=== PATIENT | female | born 1995 | race African-American/Black ===

== ENCOUNTER 2020-07-17 09:58 | Emergency (ER) | payer MEDICAID ==
[~2020-07-17] VITALS: Ht 180.3 cm; Wt 84.0 kg
[2020-07-17] MEDS ORDERED: MORPHINE SULFATE 4 MG/ML CPJ (NOT FOR IM USE) IV STA (11:05)
[2020-07-17] MEDS ORDERED: DEXT15LI MT (11:13)
[2020-07-17] MEDS ORDERED: PSEU60TA95 MT (11:14)
[2020-07-17] MEDS ORDERED: PSEUDOEPHEDRINE HCL 30MG TABLET PO STA (11:15)
[2020-07-17] MEDS ORDERED: PROMETHAZINE/DEXTROMETHORPHAN 6.25-15MG/5ML BOTTLE 120ML PO PRN (11:15)
[2020-07-17] MEDS ORDERED: SODIUM CHLORIDE 0.9% 1,000 ML IV ONE (11:15)
[2020-07-17 12:04] LABS: CLARITY URINE CLEAR (CLEAR); COLOR URINE YELLOW (YELLOW); KETONES URINE NEGATIVE (NEGATIVE); LEUKOCYTE ESTERASE URINE TRACE (NEGATIVE); NITRITE URINE NEGATIVE (NEGATIVE); OCCULT BLOOD URINE NEGATIVE (NEGATIVE); PROTEIN URINE NEGATIVE (NEGATIVE); SPECIFIC GRAVITY URINE 1.027 (1.005-1.030); UROBILINOGEN URINE 0.2 E.U./dL (0.2-1.0)
[2020-07-17 12:06] LABS: UCG SCREEN NEGATIVE
[2020-07-17 12:29] VITALS: BP 131/82
== END 2020-07-17 13:13 | disposition home or self-care (01) ==
LOC: ER 09:58
DX: J06.9 Acute upper respiratory infection, unspecified (principal); Z20.822 Contact with and (suspected) exposure to COVID-19
CPT/HCPCS: 81003; 81025; 96361; 96374; 99285; J2270; J7030

== ENCOUNTER 2020-09-07 17:26 | Emergency (ER) | payer MEDICAID ==
[~2020-09-07] VITALS: Ht 180.3 cm; Wt 82.0 kg
[~2020-09-07 17:26] MED LIST: DEXT15LI MT; PSEU60TA95 MT
[2020-09-07] MEDS ORDERED: ALBU6.7H9 INH (17:47)
[2020-09-07 18:02] VITALS: BP 122/76
== END 2020-09-07 18:03 | disposition home or self-care (01) ==
LOC: ER 17:26
DX: J45.909 Unspecified asthma, uncomplicated (principal); Z76.0 Encounter for issue of repeat prescription
CPT/HCPCS: 99282

== ENCOUNTER 2020-09-27 13:24 | Emergency (ER) | payer MEDICAID ==
[~2020-09-27] VITALS: Ht 180.3 cm; Wt 85.0 kg
[~2020-09-27 13:24] MED LIST changes: +ALBU6.7H9 INH
[2020-09-27] MEDS: ONDANSETRON HCL 4MG/2ML INJ IV STA ×2 (14:13→15:21)
[2020-09-27] MEDS: IBUPROFEN 600MG TABLET PO STA (14:13)
[2020-09-27] MEDS: MAGNESIUM/ALUMINUM HYDROXIDE/SIMETHICONE 30ML UDC PO STA (14:13)
[2020-09-27] MEDS: SODIUM CHLORIDE 0.9% 1,000 ML IV ONE (14:13)
[2020-09-27 14:22] LABS: BASOPHILS % 1.2 % (0.0-2.0); EOSINOPHILS % 3.5 % (0.0-5.0); HEMATOCRIT. 37.9 % (36.0-48.0); HEMOGLOBIN. 13.2 g/dL (12.0-16.0); LYMPHOCYTES % 36.3 % (20.0-50.0); MEAN CORPUSCULAR HEMOGLOBIN 31.9 pg (28.0-32.0); MEAN CORPUSCULAR VOLUME 91.7 fL (81.0-99.0); MEAN PLATELET VOLUME 8.5 fl (7.4-10.4); MONOCYTES % 11.8 % (2.0-8.0); NEUTROPHILS % 47.2 % (40.0-76.0); PLATELET 258 x1000/uL (130-400); RED BLOOD CELL COUNT 4.13 mill/uL (4.2-5.4); RED CELL DISTRIBUTION WIDTH 14.2 % (11.6-14.6)
[2020-09-27 14:29] LABS: CHLORIDE 110 mEq/L (98-107)
[2020-09-27 14:56] LABS: CLARITY URINE CLEAR (CLEAR); COLOR URINE YELLOW (YELLOW); KETONES URINE NEGATIVE (NEGATIVE); LEUKOCYTE ESTERASE URINE TRACE (NEGATIVE); NITRITE URINE NEGATIVE (NEGATIVE); OCCULT BLOOD URINE NEGATIVE (NEGATIVE); PROTEIN URINE NEGATIVE (NEGATIVE); UROBILINOGEN URINE 0.2 E.U./dL (0.2-1.0)
[2020-09-27] MEDS: MORPHINE SULFATE 4 MG/ML CPJ (NOT FOR IM USE) IV STA (15:21)
[2020-09-27] MEDS ORDERED: IBUP-2029 MT ×2 (17:57→18:02)
[2020-09-27 19:12] VITALS: BP 127/88
== END 2020-09-27 19:12 | disposition home or self-care (01) ==
LOC: ER 13:24
DX: R10.9 Unspecified abdominal pain (principal); R05 Cough; J45.909 Unspecified asthma, uncomplicated
CPT/HCPCS: 36415; 71045; 74176; 80053; 81003; 81025; 85025; 96361; 96374; 96375; 96376; 99285; J2270; J2405; J7030